=== PATIENT | female | born 1960 | race Caucasian/White ===

== ENCOUNTER 2016-10-20 19:59 | Emergency (ER) | payer OTHER ==
[2016-10-20 20:08] VITALS: RESP 16; TEMP 97.7; O2SAT 96
--- NOTE | 2016-10-20 20:12 | EDPHY ---
H & P Stated Complaint: L foot injury HPI/ROS: CHIEF COMPLAINT: Left foot pain HISTORY OF PRESENT ILLNESS: The patient is a 56 y/o female arriving with her complaining of left foot pain secondary to tripping on a rock this evening. She states she was power -walking with her dog when she stepped on a rook and her ankle inverted. She had immediate pain along her lateral left foot, but was able to walk initially. She now is unable to bear weight due to pain. She denies weakness, paresthesias , or other injuries. She applied ice to the injury and took ibuprofen a couple hours prior to arrival in the ED. She denies pertinent medical history. REVIEW OF SYSTEMS: A ten point review of systems was performed and is negative with the exception of the items mentioned in the HPI. Source: Patient Exam Limitations: No limitations - Personal History LMP (Females 10-55): Hysterectomy Current Tetanus/Diphtheria Vaccine: Yes Current Tetanus Diphtheria and Acellular Pertussis (TDAP): Yes - Medical/Surgical History PMH: Denies. Hx Asthma: No Hx Chronic Respiratory Disease: No Hx Diabetes: No Hx Cardiac Disease: No Hx Renal Disease: No Hx Cirrhosis: No Hx Alcoholism: No Hx HIV/AIDS: No Hx Splenectomy or Spleen Trauma: No Other PMH: hysterectomy, , - Social History Smoking Status: Never smoked Additional Social History: at bedside. PCP: Andreina Cadet - Physical Exam Exam: General Appearance: Alert. Vital signs reviewed. Focused exam was performed. Neck: Nontender to palpation over the cervical spine in the midline. Respiratory: Lungs are clear to auscultation; no wheezes, rales, or rhonchi. Cardiovascular: Regular rate and rhythm; no murmur, rub, or gallop Skin: Warm and dry, no rashes on exposed skin, normal color. Back: Nontender to palpation over the thoracolumbar spine. Extremities: Ecchymosis and tenderness to proximal lateral aspect left foot. Minimal swelling at this site. No palpable bony deformity. Pulses: 2+ dorsalis pedis pulse on the left. Neurological: Alert and oriented. Normal sensation and motor of left leg and foot. Psychiatric: Normal affect. Constitutional: Initial Vital Signs Temperature (C) 36.5 C 10/20/16 20:05 Heart Rate 77 10/20/16 20:05 Respiratory Rate 16 10/20/16 20:05 Blood Pressure 127/91 H 10/20/16 20:05 O2 Sat (%) 96 10/20/16 20:05 O2 Delivery Mode Room Air Allergies/Adverse Reactions: No Known Allergies Allergy (Unverified 10/20/16 20:05) Home Medications: Medication Instructions Recorded Arnica Flower Extract 10/20/16 Ibuprofen 10/20/16 Medical Decision Making - Diagnostics Imaging: I viewed the images myself on the PACS system. My interpretation is: Nondisplaced fracture of the proximal left 5th metatarsal. ED Course/Re-evaluation: Patient had an inversion injury of her left foot and presents with tenderness and ecchymosis to proximal lateral foot. She is neurovascularly intact. X-ray reveals subtle left 5th metatarsal fracture. Patient will be discharged in a [place] boot with crutches and standard foot fracture care instructions. She's been referred to podiatry and ortho for follow up next week. Return precautions given. She is comfortable with this plan. Differential Diagnosis: I considered a differential diagnosis that includes but is not limited to fracture, dislocation, sprain, compartment syndrome, contusion, and abrasion. - Data Points Medications Given: Discontinued Medications Ibuprofen (Motrin) 200 mg PO EDNOW ONE Stop: 10/20/16 20:22 Last Admin: 10/20/16 20:29 Dose: 200 mg Departure - Departure Disposition: Home, Routine, Self-Care Clinical Impression: Fracture of 5th metatarsal Qualifiers: Encounter type: initial encounter Fracture type: closed Fracture alignment: nondisplaced Laterality: left Qualified Code(s): S92.355A - Nondisplaced fracture of fifth metatarsal bone, left foot, initial encounter for closed fracture Condition: Good Instructions: Foot Fracture in Adults (ED) Additional Instructions: You have a subtle nondisplaced fracture through the proximal metaphysis of the left fifth metatarsal. Please follow the instructions below. 1. Wear boot until cleared by podiatry or orthopedist. Use crutches. Do not bear weight until cleared by specialist. 2. Apply ice to sore areas. Expect to feel more sore tomorrow. 3. Use ibuprofen and Tylenol as needed for pain for the next 3-4 days. 4. Follow up with Dr. Ventura, drug department worker, or Dr. De La O, orthopedist, next week. 5. Return to the ED for severe pain, weakness or numbness of your toes, or other worsening of condition. Adult Pain & Fever Control: We recommend Acetaminophen (Tylenol) and Ibuprofen (Motrin,Advil) for pain and fever control. When fever is high or pain severe, both drugs can be used at the same time, but at different intervals. Please note the time differences. Your dose is: Acetaminophen 650mg every 4 to 6 hours Ibuprofen 600mg every 6-8hours with food Note: do not take Acetaminophen with Hydrocodone (Vicodin, Lortab) or Oxycodone (Percocet). These medications also contain Acetaminophen. No more than 3000mg of Acetaminophen should be taken in 24 hours (for an adult). Referrals: Andreina Cadet MD [Primary Care Provider] - As per Instructions Franklin Ventura DPM [Doctor of Podiatric Medicine] - As per Instructions Jeff De La O MD [Medical Doctor] - As per Instructions Report Scribed for: Sofie Loving Report Scribed by: Katy Lehman Date of Report: 10/20/16 Time of Report: 20:39 Physician Review and Approval Statement: 10/21/16 12:04 Portions of this note were transcribed by the medical device sales. I, Dr. Sofie Loving, personally performed the history, physical exam, and medical decision- making; and confirmed the accuracy of the information in the transcribed note.
[2016-10-20] MEDS ORDERED: IBUPROFEN 200 MG TAB PO ONE (20:21)
[2016-10-20 21:18] VITALS: BP 116/77; PULSE 66
== END 2016-10-20 21:18 | disposition home or self-care (01) ==
DX: S92.355A Nondisplaced fracture of fifth metatarsal bone, left foot, initial encounter for closed fracture (principal); W01.0XXA Fall on same level from slipping, tripping and stumbling without subsequent striking against object, initial encounter; Y99.8 Other external cause status; Y93.K1 Activity, walking an animal
CPT/HCPCS: L4386

== ENCOUNTER → 2018-08-07 | Outpatient (CLI) | payer OTHER | LOC: FIMAGING 10:03 | PROVIDERS: ATTEND Family Medicine | DX: Z12.31 Encounter for screening mammogram for malignant neoplasm of breast (principal) ==

== ENCOUNTER → 2018-08-16 | Outpatient (CLI) | payer OTHER | LOC: FIMAGING 13:00 | PROVIDERS: ATTEND Family Medicine | DX: E78.5 Hyperlipidemia, unspecified (principal) ==